=== PATIENT | female | born 1995 | race African-American/Black ===

== ENCOUNTER 2017-08-19 05:54 | Emergency (ER) | payer OTHER ==
[~2017-08-19] VITALS: Ht 165.1 cm; Wt 72.6 kg
[~2017-08-19 05:54] MED LIST: DOXYCYCLINE 10100 MG PO; FLAGYL500 MG PO; VITAFOL-OB+DHA1 EACH PO
[2017-08-19 06:24] LABS: URINE BILIRUBIN NEGATIVE (Negative); URINE BLOOD NEGATIVE (Negative); URINE CLARITY SL CLOUDY; URINE COLOR YELLOW; URINE GLUCOSE-RANDOM* NEGATIVE (Negative); URINE KETONES NEGATIVE (Negative); URINE LEUKOCYTES-REFLEX NEGATIVE (Negative); URINE NITRITE-REFLEX NEGATIVE (Negative); URINE PROTEIN (DIPSTICK) NEGATIVE (Negative); URINE SPECIFIC GRAVITY >= 1.030 (1.005-1.035); URINE UROBILINOGEN 0.2 E.U./dl (0.2-1.0)
[2017-08-19 06:40] LABS: HEMATOCRIT 35.4 % (37.0-47.0); MCH 28.5 pg (26.0-34.0); MCHC 33.9 g/dL (28.0-37.0); MCV 84.1 fL (80.0-100.0); RBC 4.21 mil/uL (4.20-5.00); WBC 6.4 thou/uL (4.0-11.0)
[2017-08-19 06:51] LABS: CALCIUM 8.7 mg/dL (8.5-10.1); CREATININE 0.8 mg/dL (0.6-1.0); POTASSIUM 3.6 mmol/L (3.5-5.1)
[2017-08-19 06:56] LABS: ALBUMIN 3.4 g/dL (3.4-5.0); DIRECT BILIRUBIN 0.1 mg/dL (<0.1-0.3); MAGNESIUM 1.8 mg/dL (1.8-2.4); TOTAL BILIRUBIN 0.5 mg/dL (<0.1-1.0); TOTAL PROTEIN 6.7 g/dL (6.4-8.2)
[2017-08-19] MEDS ORDERED: REGLAN 5 MG TAB5 MG PO (07:40)
== END 2017-08-19 08:01 | disposition home or self-care (01) ==
LOC: ER 05:54
PROVIDERS: Emergency Medicine
DX: O26.891 Other specified pregnancy related conditions, first trimester (principal); Z3A.01 Less than 8 weeks gestation of pregnancy; R42 Dizziness and giddiness; R51 Headache

== ENCOUNTER 2019-12-04 18:42 | Emergency (ER) | payer OTHER ==
[~2019-12-04] VITALS: Ht 165.1 cm; Wt 72.6 kg
[~2019-12-04 18:42] MED LIST changes: +REGLAN 5 MG TAB5 MG PO
[2019-12-04 19:46] VITALS: BP 131/91
== END 2019-12-04 19:47 | disposition home or self-care (01) ==
LOC: ER 18:42
DX: S93.402A Sprain of unspecified ligament of left ankle, initial encounter (principal); V89.2XXA Person injured in unspecified motor-vehicle accident, traffic, initial encounter; Y93.89 Activity, other specified; Y92.89 Other specified places as the place of occurrence of the external cause; Y99.8 Other external cause status